=== PATIENT | male | born 1985 | race Caucasian/White ===

== ENCOUNTER 2017-12-16 15:03 | Outpatient (CLI) | payer BC | END 2017-12-16 15:04 | disposition home or self-care (01) | LOC: DTY/OP 15:03 | PROVIDERS: ATTEND Family Medicine | DX: E03.9 Hypothyroidism, unspecified (principal); E88.81 Metabolic syndrome and other insulin resistance; E66.01 Morbid (severe) obesity due to excess calories | CPT/HCPCS: 97802 ==

== ENCOUNTER 2021-07-24 13:56 | Outpatient (CLI) | payer BC | END 2021-07-24 13:57 | disposition home or self-care (01) | LOC: BICCT 13:56 | PROVIDERS: ATTEND Family Medicine | DX: R07.89 Other chest pain (principal) | CPT/HCPCS: 70491; 71260 ==